=== PATIENT | female | born 1995 | race American Indian/Alaskan Native ===

== ENCOUNTER 2018-07-10 18:13 | Emergency (ER) | payer SELFPAY ==
--- NOTE | 2018-07-10 18:17 | Emergency Department Report ---
Blank Doc - Documentation Documentation: Patient here reports taking multiple test at home and positive. C/O abdominal pain. denies vaginal bleeding. Mikey crampy ABdominal: TTP pelvic area. Nl bs. A/P Abdominal pain- positive home Urine ua and HCG Pt screened by provider. She is stable
[2018-07-10] MEDS ORDERED: PEPCID IV ONE (18:18)
[2018-07-10] MEDS ORDERED: SOLU-Medrol IV ONE (18:18)
[2018-07-10] MEDS ORDERED: BENADRYL IV ONE (18:18)
[2018-07-10 18:22] VITALS: BP 116/70
[2018-07-10 20:16] LABS: BUN/Creatinine Ratio 18; Blood Urea Nitrogen 11 mg/dL (7-17); Calcium 8.9 mg/dL (8.4-10.2); Hemolysis Index 7
[2018-07-10 20:32] LABS: Hematocrit 39.2 % (30.3-42.9); Hemoglobin 13.1 gm/dl (10.1-14.3); Mean Corpuscular HGB Conc 33 % (30-34); Mean Corpuscular Volume 92 fl (79-97); Platelet Count 275 K/mm3 (140-440); Red Blood Count 4.28 M/mm3 (3.65-5.03); Red Cell Distribution Width 12.7 % (13.2-15.2)
== END 2018-07-10 21:30 | disposition left against medical advice (07) ==
LOC: ED 18:13
DX: O26.891 Other specified pregnancy related conditions, first trimester (principal); R10.30 Lower abdominal pain, unspecified; Z3A.01 Less than 8 weeks gestation of pregnancy; Z53.21 Procedure and treatment not carried out due to patient leaving prior to being seen by health care provider
CPT/HCPCS: 36415; 80048; 85027